=== PATIENT | female | born 1940 | race Caucasian/White ===

== ENCOUNTER 2020-11-04 08:33 | Emergency (ER) | payer MEDICARE, OTHER ==
[2020-11-04 09:25] LABS: BASOPHIL 0.8 % (0-2); EOSINOPHIL 3.6 % (0-7); HCT 36.5 % (37.0-47.0); LYMPHOCYTE 33.1 % (15-48); MCH 29.3 pg (25.0-31.0); MCHC 32.9 g/dL (32.0-36.0); MCV 89.2 fL (78.0-100.0); MONOCYTE 7.5 % (0-12); MPV 9.8 fL (6.0-9.5); NEUTROPHIL 54.8 % (41-80); NRBC 0; PLT 236 K/uL (150-400); RBC 4.09 M/uL (4.20-5.40); RDW 13.5 % (11.5-14.0); RETICULOCYTE COUNT 1.4 % (1.0-2.0); WBC 6.4 K/uL (4.0-10.5)
[2020-11-04 09:36] LABS: INR 2.44 (0.9-1.2); PROTHROMBIN TIME 25.2 SECONDS (11.4-13.6); PTT 37.4 SECONDS (22.2-34.7)
[2020-11-04 09:37] LABS: D-DIMER 0.88 ug/mLFEU (0.00-0.41)
[2020-11-04 09:46] LABS: LACTIC ACID 1.4 mmol/L (0.4-1.9)
[2020-11-04 10:05] LABS: BILIRUBIN NEGATIVE (NEGATIVE); BLOOD NEGATIVE Ery/uL (NEGATIVE); CLARITY CLEAR (CLEAR); COLOR YELLOW (YELLOW); GLUCOSE (U) NORMAL (NORMAL); LEUKOCYTES NEGATIVE Leu/uL (NEGATIVE); NITRITE NEGATIVE (NEGATIVE); PROTEIN NEGATIVE (NEGATIVE); UROBILINOGEN 0.2 mg/dL (0.2-1.0); pH 5.5 (5.0-9.0)
[2020-11-04 10:10] LABS: IRON % SATURATION 27.1 %SAT (20-50)
[2020-11-04 10:18] LABS: PRO-BNP 270 pg/mL (<450)
[2020-11-04 10:20] LABS: ALBUMIN 3.3 g/dL (3.4-5.0); BILIRUBIN - TOTAL 0.8 mg/dL (0.2-1.0); C-REACTIVE PROTEIN 0.6 mg/dL (<=0.90); CREATININE 1.5 mg/dL (0.51-0.95); GLOBULIN (CALCULATION) 3.8 g/dL; MAGNESIUM 1.7 mg/dL (1.8-2.4); POTASSIUM 3.7 mmol/L (3.5-5.1); TOTAL PROTEIN 7.1 g/dL (6.4-8.2)
[2020-11-04 10:33] LABS: CORONAVIRUS 2019 SARS-COV-2 NEGATIVE (NEGATIVE); INFLUENZA A NAA NEGATIVE (NEGATIVE)
[2020-11-04] MEDS ORDERED: PROAIR HFA8.5 GM INH (14:15)
[2020-11-04] MEDS ORDERED: ATROVENT HFA12.9 GM INH (14:15)
[2020-11-04] MEDS ORDERED: VIBRAMYCIN100 MG PO (14:15)
[2020-11-04] MEDS ORDERED: PREDNISONE 20MG20 MG PO (14:15)
== END 2020-11-04 14:39 | disposition home or self-care (01) ==
LOC: FER 08:33
PROVIDERS: Emergency Medicine
DX: J84.10 Pulmonary fibrosis, unspecified (principal); I48.91 Unspecified atrial fibrillation; Z91.041 Radiographic dye allergy status; Z88.0 Allergy status to penicillin; Z88.6 Allergy status to analgesic agent; Z79.01 Long term (current) use of anticoagulants; Z79.899 Other long term (current) drug therapy; Z20.822 Contact with and (suspected) exposure to COVID-19
CPT/HCPCS: 36415; 71250; 80053; 81003; 82728; 83540; 83550; 83605; 83735; 83880; 84145; 84443; 84484; 85025; 85379; 85610; 85730; 86140; 87040; 93005; 94640; J2930; U0002